=== PATIENT | female | born 1995 | race African-American/Black ===

== ENCOUNTER → 2021-12-31 15:13 | Outpatient (CLI) | payer OTHER, SELFPAY ==
--- NOTE | 2021-12-31 15:16 | DI.MRI.S_ITS ---
PROCEDURE: MR ANKLE RT WO CON INDICATIONS: Pain in right and left ankle joints TECHNIQUE: Noncontrast sagittal T1 spin echo and T2 fast spin echo with fat saturation, axial proton density fast spin echo and T2 fast spin echo with fat saturation, coronal T1 spin echo and T2 fast spin echo with fat saturation through the ankle/hindfoot. COMPARISON: None. FINDINGS: Image quality: Excellent. Bones and joints: Osseous edema is seen within distal fibular shaft extending into the fibular head. There is mild edema within the posterolateral portion of the tibial plafond. No discrete fracture line is seen. Osseous structures are otherwise intact. Mild sagging of the midfoot is nonspecific on nonweightbearing images, but could indicate mild pes planus. No hindfoot coalitions. No osteochondral injuries of the talar dome. Medial structures: The deep and superficial layers of the deltoid ligament appear intact. The spring ligament components are intact. The posterior tibialis, flexor digitorum longus, and flexor hallucis longus tendons are intact. The posterior tibial neurovascular bundle appears normal within the tarsal tunnel, without extrinsic mass effect. Lateral structures: The anterior talofibular, calcaneofibular, and posterior talofibular ligaments appear intact. The anterior and posterior tibiofibular ligaments appear intact. The peroneus longus and brevis tendons demonstrate normal location and morphology. The sinus tarsi demonstrates normal fatty signal, without edema, fibrosis, or cyst formation. Anterior structures: The tibialis anterior, extensor hallucis longus, and extensor digitorum longus tendons appear intact. The dorsal talonavicular ligament appears intact. Posterior and plantar structures: Achilles tendon is intact. Medial and lateral bands of the plantar fascia are of normal thickness. No abductor digiti quinti muscle atrophy to suggest Jamison neuropathy. IMPRESSION: 1. Osseous edema is seen in the distal fibula extending from the distal fibular shaft to the distal tip. No discrete fracture line is seen. There is also trace osseous edema at the posterolateral tibial plafond. Findings are most likely secondary to a prior osseous contusion, although other causes of osseous edema are not excluded. Recommend correlation for prior trauma. 2. No significant ligament or tendon injury is seen in the ankle and hindfoot. Dictated by: Devin Polanco M.D. on 12/31/2021 at 16:49 Approved by: Devin Polanco M.D. on 12/31/2021 at 17:01
--- NOTE | 2021-12-31 15:16 | DI.MRI.S_ITS ---
PROCEDURE: MR ANKLE LT WO CON INDICATIONS: Pain in right and left ankle joints TECHNIQUE: Noncontrast sagittal T1 spin echo and T2 fast spin echo with fat saturation, axial proton density fast spin echo and T2 fast spin echo with fat saturation, coronal T1 spin echo and T2 fast spin echo with fat saturation through the ankle/hindfoot. COMPARISON: None. FINDINGS: Image quality: Excellent. Bones and joints: No bone marrow contusions or fractures. Mild sagging of the midfoot is nonspecific on nonweightbearing images but could indicate mild pes planus. No hindfoot coalitions. No osteochondral injuries of the talar dome. Small mortise joint effusion. Mild nonspecific subcutaneous soft tissue edema is seen over the medial and lateral malleoli. Medial structures: The deep and superficial layers of the deltoid ligament appear intact. The spring ligament components are intact. The posterior tibialis, flexor digitorum longus, and flexor hallucis longus tendons are intact. The posterior tibial neurovascular bundle appears normal within the tarsal tunnel, without extrinsic mass effect. Lateral structures: There is complete tearing of the anterior talofibular ligament. Increased signal within the calcaneofibular ligament is consistent with a low-grade sprain. The posterior talofibular ligament is intact. The anterior and posterior tibiofibular ligaments are intact. The peroneus longus and brevis tendons demonstrate normal location and morphology. The sinus tarsi demonstrates normal fatty signal, without edema, fibrosis, or cyst formation. Anterior structures: The tibialis anterior, extensor hallucis longus, and extensor digitorum longus tendons appear intact. The dorsal talonavicular ligament appears intact. Posterior and plantar structures: Achilles tendon is intact. Medial and lateral bands of the plantar fascia are of normal thickness. No abductor digiti quinti muscle atrophy to suggest Jamison neuropathy. IMPRESSION: 1. Complete tearing of the anterior talofibular ligament. 2. Grade 1 sprain of the calcaneofibular ligament. 3. No acute trabecular bone injury. No significant tendon injury is seen. Dictated by: Devin Polanco M.D. on 12/31/2021 at 16:57 Approved by: Devin Polanco M.D. on 12/31/2021 at 17:01
== END ==
PROVIDERS: Referring Provider Podiatrist; Visit Provider Podiatrist
DX: M25.372 Other instability, left ankle (principal); M25.371 Other instability, right ankle; S93.492A Sprain of other ligament of left ankle, initial encounter; S93.412A Sprain of calcaneofibular ligament of left ankle, initial encounter; M25.571 Pain in right ankle and joints of right foot; M25.572 Pain in left ankle and joints of left foot; R60.0 Localized edema
CPT/HCPCS: 73721